=== PATIENT | female | born 1960 | race Hispanic/Latino ===

== ENCOUNTER 2020-03-28 16:58 | Emergency (ER) | payer OTHER ==
[~2020-03-28] VITALS: Ht 160 cm; Wt 65.3 kg
--- NOTE | 2020-03-28 18:08 | NUR ---
Adim approval received for patients daughter Sachin Wray to stay with patient during ER visit from [facility] due to patient being a flight risk. Visitor passed screening and temp checked 98.0.
--- NOTE | 2020-03-28 18:20 | Emergency Department Note ---
History of Present Illnes History of Present Illness Chief Complaint: General Medicine Complaints History of Present Illness This is a 59 year old female presents with c/o left foot pain since this morning, has ankle monitor on left ankle, pt is under house arrest. pt denies injury Historian: Patient, Family Member Arrival Mode: Car Additional Treatment C[employer] FOOD: n/a Onset (how long ago): hour(s) (12) Location: left foot Quality: pain Radiation: Reports non-radiation Severity: mild Onset quality: sudden Duration (how long): hour(s) (12) Timing of current episode: constant Progression: unchanged Chronicity: new Context: Denies recent illness, Denies recent surgery, Denies trauma/injury Relieving factors: none Exacerbating factors: movement Associated symptoms: Reports denies other symptoms Past Medical/Family History Physician Review I have reviewed the patient's past medical and family history. Any updates have been documented here. Past Medical History Recent Fever: No Clinical Suspicion of Infectio: No New/Unexplained Change in Ment: No Past Medical History: Hypertension, Hyperlipedemia Other Medical History: depression Other Surgery: partial hysterectomy Social History Counseling Performed: No Alcohol Use: None Any Illegal Drug Use: No Physically hurt or threatened: No Other Any Pre-Existing Lines (PICC,: No Review of Systems Review of Systems Constitutional: Reports no symptoms EENTM: Reports no symptoms Cardiovascular: Reports no symptoms Respiratory: Reports no symptoms Gastrointestinal: Reports no symptoms Genitourinary: Reports no symptoms Musculoskeletal: Reports as per HPI Integumentary: Reports no symptoms Neurological: Reports no symptoms Psychological: Reports no symptoms Endocrine: Reports no symptoms Hematological/Lymphatic: Reports no symptoms Physical Exam Related Data Allergies: Coded Allergies: No Known Allergies (Unverified , 03/28/20) Triage Vital Signs Vital Signs Date Time Temp Pulse Resp B/P (MAP) Pulse Ox O2 Delivery O2 Flow Rate FiO2 03/28/20 17:17 98.0 82 16 155/71 100 Room Air Vital signs reviewed: Yes Physical Exam CONSTITUTIONAL Constitutional: Present well-developed, Present well-nourished; Absent distressed HENT HENT: Present normocephalic, Present atraumatic, Present oropharynx clear/moist, Present nose normal HENT L/R: Present left ext ear normal, Present right ext ear normal EYES Eyes: Reports PERRL, Reports conjunctivae normal NECK Neck: Present ROM normal PULMONARY Pulmonary: Present effort normal, Present breath sounds normal CARDIOVASCULAR Cardiovascular: Present regular rhythm, Present heart sounds normal, Present capillary refill normal, Present normal rate GASTROINTESTINAL Abdominal: Present soft, Present nontender, Present bowel sounds normal GENITOURINARY Genitourinary: Present exam deferred SKIN Skin: Present warm, Present dry MUSCULOSKELETAL Musculoskeletal: Present ROM normal, Present tenderness (to lateral aspect of left foot, no deformity noted), Present other (pt and pt pulses 2+) NEUROLOGICAL Neurological: Present alert, Present oriented x 3, Present no gross motor or sensory deficits PSYCHOLOGICAL Psychological: Present mood/affect normal, Present judgement normal Results Imaging Imaging results reviewed: Yes Impressions Procedure: [id number] DX/FOOT LEFT COMPLETE Exam Date: 03/28/20 Exam Time: 1829 REPORT STATUS: Signed X-ray site and # of views HISTORY: Foot pain. COMPARISON: None available. FINDINGS: Bones: No acute displaced fracture. There is an os not requires and an os peroneum. Calcaneal enthesophytes are noted. Osseous alignment is within normal limits. Joints: The joint spaces are well-maintained. There are mild degenerative changes of the first metatarsophalangeal and interphalangeal joints. Soft tissues: The soft tissues appear unremarkable. IMPRESSION: 1. No fracture or dislocation identified. 2. Mild degenerative changes of the first metatarsophalangeal and interphalangeal joints. Signed by: Jayme Griffin MD on 03/28/2020 7:15 PM Dictated By: JAYME GRIFFIN MD 14 Transcribed By: MARIA LUZ on 03/28/201914 COPY TO: NEYMAR CLAYTON MD~ Assessment & Plan Medical Decision Making MDM pt with left foot pain xray left foot ordered to eval for stress fracture Assessment & Plan Final Impression: (1) Left foot pain (2) Arthritis Depart Disposition: HOME, SELF-CARE Last Vital Signs Date Time Temp Pulse Resp B/P (MAP) Pulse Ox O2 Delivery O2 Flow Rate FiO2 03/28/20 17:21 90 16 155/71 100 Room Air 03/28/20 17:17 98.0 NEYMAR CLAYTON MD Mar 28, 2020 18:20
[2020-03-28] MEDS ORDERED: IBUPROFEN 600 MG TAB PO NR (18:30)
--- NOTE | 2020-03-28 19:19 | Diagnostic Imaging Report ---
X-ray site and # of views HISTORY: Foot pain. COMPARISON: None available. FINDINGS: Bones: No acute displaced fracture. There is an os not requires and an os peroneum. Calcaneal enthesophytes are noted. Osseous alignment is within normal limits. Joints: The joint spaces are well-maintained. There are mild degenerative changes of the first metatarsophalangeal and interphalangeal joints. Soft tissues: The soft tissues appear unremarkable. IMPRESSION: 1. No fracture or dislocation identified. 2. Mild degenerative changes of the first metatarsophalangeal and interphalangeal joints. Signed by: Jayme Delcid MD on 03/28/2020 7:15 PM
[2020-03-28 19:47] VITALS: BP 149/74
== END 2020-03-28 20:01 | disposition home or self-care (01) ==
LOC: ER 17:17
DX: M79.672 Pain in left foot (principal); M19.072 Primary osteoarthritis, left ankle and foot; I10 Essential (primary) hypertension; E78.5 Hyperlipidemia, unspecified; F32.9 Major depressive disorder, single episode, unspecified
CPT/HCPCS: 99283

== ENCOUNTER 2020-09-01 23:41 | Emergency (ER) | payer OTHER ==
[~2020-09-01] VITALS: Ht 160 cm; Wt 65.3 kg
[2020-09-01] MEDS ORDERED: METHYLPREDNISOLONE SOD SUCC 125 MG/2ML VIAL IV STA (23:52)
[2020-09-01] MEDS ORDERED: METOCLOPRAMIDE HCL 10 MG/2ML VIAL IV STA (23:52)
[2020-09-01] MEDS ORDERED: DIPHENHYDRAMINE HCL INJ 50 MG/ML VIAL IV STA (23:52)
[2020-09-01] MEDS ORDERED: SODIUM CHLORIDE 0.9% 1000ML 1,000 ML IV STA (23:52)
[2020-09-01] MEDS ORDERED: KETOROLAC TROMETHAMINE 30 MG/ML VIAL IV STA (23:52)
[2020-09-02 00:15] LABS: BASOPHILS % 0.4 % (0.0-1.0); EOSINOPHILS # (AUTO) 0.2 (0.0-0.4); EOSINOPHILS % 2.2 % (0.0-6.0); HEMOGLOBIN 14.2 g/dL (12.0-16.0); LYMPHOCYTES # (AUTO) 1.9 (1.0-3.2); LYMPHOCYTES % 24.8 % (18.0-39.1); MEAN CORPUSCULAR HEMOGLOBIN 29.2 pg (28-32); MEAN CORPUSCULAR VOLUME 88.5 fL (81-99); MONOCYTES # (AUTO) 0.6 (0.2-0.8); MONOCYTES % 7.2 % (4.4-11.3); NEUTROPHILS # (AUTO) 5.1 (2.1-6.9); NEUTROPHILS % 64.9 % (38.7-80.0); PLATELET COUNT 203 x10e3/uL (140-360); RED BLOOD COUNT 4.86 x10e6/uL (3.6-5.1); RED CELL DISTRIBUTION WIDTH 12.8 % (11.7-14.4)
[2020-09-02 00:28] LABS: ALBUMIN 4.3 g/dL (3.5-5.0); ALBUMIN/GLOBULIN RATIO 1.2 (0.8-2.0); ANION GAP 13.5 mmol/L (8-16); CALCIUM 9.3 mg/dL (8.4-10.2); CREATININE, SERUM 1.3 mg/dL (0.57-1.11); POTASSIUM 3.5 mmol/L (3.5-5.1)
[2020-09-02] MEDS ORDERED: FIORICET 50-301 EACH PO (01:30)
[2020-09-02 02:00] VITALS: BP 143/73
== END 2020-09-02 02:00 | disposition home or self-care (01) ==
LOC: ER 09-02 00:36
DX: R51.9 Headache, unspecified (principal); I10 Essential (primary) hypertension; E78.5 Hyperlipidemia, unspecified; F32.9 Major depressive disorder, single episode, unspecified
CPT/HCPCS: 36415; 70450; 80053; 85025; 99284; J1200; J1885; J2765; J2930; J7030

== ENCOUNTER 2020-10-15 10:08 | Emergency (ER) | payer OTHER ==
[~2020-10-15] VITALS: Ht 160 cm; Wt 65.3 kg
[~2020-10-15 10:08] MED LIST: FIORICET 50-301 EACH PO
[2020-10-15] MEDS ORDERED: ACETAMINOPHEN 325 MG TAB PO ONE (10:30)
== END 2020-10-15 11:23 | disposition home or self-care (01) ==
LOC: ER 10:25
DX: U07.1 COVID-19 (principal); R50.9 Fever, unspecified; R11.0 Nausea; R53.1 Weakness; I10 Essential (primary) hypertension; E78.5 Hyperlipidemia, unspecified; F32.9 Major depressive disorder, single episode, unspecified; G47.30 Sleep apnea, unspecified
CPT/HCPCS: 99282

== ENCOUNTER 2020-10-18 13:12 | Emergency (ER) | payer OTHER ==
[~2020-10-18] VITALS: Ht 160 cm; Wt 65.3 kg
== END 2020-10-18 13:40 | disposition home or self-care (01) ==
LOC: ER 13:32
DX: U07.1 COVID-19 (principal); R06.00 Dyspnea, unspecified; R53.1 Weakness; R53.81 Other malaise; I10 Essential (primary) hypertension; E78.5 Hyperlipidemia, unspecified; F32.9 Major depressive disorder, single episode, unspecified; G47.30 Sleep apnea, unspecified
CPT/HCPCS: 99282